=== PATIENT | female | born 1990 | race Caucasian/White ===

== ENCOUNTER 2017-11-18 17:56 | Emergency (ER) | payer MEDICAID, OTHER ==
[~2017-11-18] VITALS: Ht 167.6 cm; Wt 109.0 kg
[2017-11-18] MEDS ORDERED: IRON1CAP21 PO (18:20)
[2017-11-18] MEDS ORDERED: BACITRACIN ZINC OINT UDPKT TOP ONE (18:30)
[2017-11-18] MEDS ORDERED: LIDOCAINE HCL 1% 20ML VIAL (Pyxis) INJ MC ONE (18:30)
[2017-11-18 21:54] VITALS: BP 110/75
[2017-11-18] MEDS ORDERED: LIDOCAINE HCL/PF 1% 10 MG/ML 5ML VIAL IJ SCH (22:41)
[2017-11-18] MEDS ORDERED: TETANUS, DIPHTHERIA, PERTUSSIS VAC/PF 0.5ML (>7YR OLD) IM ONE (23:45)
== END 2017-11-19 00:28 | disposition home or self-care (01) ==
LOC: ER 17:56
DX: S61.512A Laceration without foreign body of left wrist, initial encounter (principal); W45.8XXA Other foreign body or object entering through skin, initial encounter; Y93.G1 Activity, food preparation and clean up; Y92.89 Other specified places as the place of occurrence of the external cause; Y99.8 Other external cause status
CPT/HCPCS: 12002; 73110; 81025; 90471; 90715; 99284; J3490

== ENCOUNTER 2020-06-14 02:45 | Inpatient (IN) | payer MEDICAID ==
[~2020-06-14] VITALS: Ht 165.1 cm; Wt 109.0 kg
[~2020-06-14 02:45] MED LIST: IRON1CAP21 PO
[2020-06-14] MEDS ORDERED: ACETAMINOPHEN 325MG TABLET PO STA (03:40)
[2020-06-14] MEDS ORDERED: SODIUM CHLORIDE 0.9% 1,000 ML IV ONE (03:45)
[2020-06-14] MEDS ORDERED: CEFTRIAXONE 1 G PREMIX 50 ML IV ONE (03:45)
[2020-06-14] MEDS ORDERED: AZITHROMYCIN 500 MG in DEXT 5% WATER 250 ML IV ONE (03:45)
[2020-06-14 04:32] LABS: BASOPHILS % 0.3 % (0.0-2.0); HEMATOCRIT. 38.1 % (36.0-48.0); HEMOGLOBIN. 11.9 g/dL (12.0-16.0); MEAN CORPUSCULAR HEMOGLOBIN 20.2 pg (28.0-32.0); MEAN CORPUSCULAR VOLUME 64.7 fL (81.0-99.0); MEAN PLATELET VOLUME 9.1 fl (7.4-10.4); MONOCYTES % 2.3 % (2.0-8.0); NEUTROPHILS % 85.4 % (40.0-76.0); PLATELET 262 x1000/uL (130-400); RED BLOOD CELL COUNT 5.88 mill/uL (4.2-5.4); RED CELL DISTRIBUTION WIDTH 21.2 % (11.6-14.6)
[2020-06-14 04:35] LABS: CHLORIDE 107 mEq/L (98-107)
[2020-06-14 04:51] LABS: HCG SCREEN NEGATIVE
[2020-06-14 05:40] LABS: PLATELET ESTIMATE NORMAL
[2020-06-14 08:57] LABS: CLARITY URINE TURBID (CLEAR); COLOR URINE DARK YELLOW (YELLOW); KETONES URINE TRACE (NEGATIVE); LEUKOCYTE ESTERASE URINE 1+ (NEGATIVE); NITRITE URINE NEGATIVE (NEGATIVE); OCCULT BLOOD URINE NEGATIVE (NEGATIVE); PROTEIN URINE 3+ (NEGATIVE); SPECIFIC GRAVITY URINE 1.033 (1.005-1.030)
[2020-06-14] MEDS ORDERED: ALBUTEROL 6.7GM HFA INHALER ORI PRN (09:15)
[2020-06-14] MEDS ORDERED: ONDANSETRON HCL 4MG/2ML INJ IV PRN (09:15)
[2020-06-14] MEDS ORDERED: CLONIDINE 0.1MG TABLET PO PRN (09:15)
[2020-06-14] MEDS ORDERED: GUAIFENESIN 200MG/10ML SUGAR FREE UDC PO PRN (09:15)
[2020-06-14] MEDS ORDERED: ACETAMINOPHEN 325MG TABLET PO PRN ×2 (09:15)
[2020-06-14] MEDS ORDERED: MAGNESIUM/ALUMINUM HYDROXIDE/SIMETHICONE 30ML UDC PO PRN (09:15)
[2020-06-14] MEDS ORDERED: NITROGLYCERIN 0.4MG TABLET SL SL PRN (09:15)
[2020-06-14] MEDS ORDERED: KETOROLAC 15MG/ML VIAL IV PRN (09:15)
[2020-06-14] MEDS: ASCORBIC ACID 500 MG TABLET PO SCH ×2 (10:00→22:16)
[2020-06-14] MEDS: GUAIFENESIN/DM 600MG/30MG ER TAB 12HR PO SCH ×2 (10:00→22:16)
[2020-06-14] MEDS: DEXAMETHASONE 10 MG/ML VIAL IV SCH (10:00)
[2020-06-14] MEDS: ENOXAPARIN 40MG/0.4ML SYR SUBCUT SCH (10:00)
[2020-06-14] MEDS: ZINC SULFATE 220 MG ( 50 ) CAPSULE PO SCH (10:00)
[2020-06-14] MEDS ORDERED: ZOLPIDEM TARTRATE 5MG TABLET PO PRN (18:00)
[2020-06-14 21:30] VITALS: BP_SYST 165
[2020-06-14 21:35] VITALS: BP_SYST 165
[2020-06-14 21:40] VITALS: BP 101/60
[2020-06-15] VITALS: BP 111/60
[2020-06-15 04:00] VITALS: BP 101/66
[2020-06-15 08:57] LABS: BASOPHILS % 0.1 % (0.0-2.0); HEMATOCRIT. 36.8 % (36.0-48.0); HEMOGLOBIN. 11.3 g/dL (12.0-16.0); LYMPHOCYTES % 19.5 % (20.0-50.0); MEAN CORPUSCULAR HEMOGLOBIN 20.1 pg (28.0-32.0); MEAN CORPUSCULAR VOLUME 65.3 fL (81.0-99.0); MEAN PLATELET VOLUME 9.3 fl (7.4-10.4); MONOCYTES % 4.5 % (2.0-8.0); NEUTROPHILS % 75.9 % (40.0-76.0); PLATELET 276 x1000/uL (130-400); RED BLOOD CELL COUNT 5.63 mill/uL (4.2-5.4); RED CELL DISTRIBUTION WIDTH 21.3 % (11.6-14.6)
[2020-06-15] MEDS ORDERED: AZITHROMYCIN 500 MG in DEXT 5% WATER 250 ML IV SCH (09:00)
[2020-06-15] MEDS ORDERED: CEFTRIAXONE 1 G PREMIX 50 ML IV SCH (09:00)
[2020-06-15 09:07] LABS: CHLORIDE 110 mEq/L (98-107)
[2020-06-15 09:16] LABS: PHOSPHORUS 2.9 mg/dL (2.5-4.9)
[2020-06-15] MEDS: ENOXAPARIN 40MG/0.4ML SYR SUBCUT SCH (09:26)
[2020-06-15] MEDS: ASCORBIC ACID 500 MG TABLET PO SCH ×2 (09:26→21:55)
[2020-06-15] MEDS: GUAIFENESIN/DM 600MG/30MG ER TAB 12HR PO SCH ×2 (09:26→21:55)
[2020-06-15] MEDS: ZINC SULFATE 220 MG ( 50 ) CAPSULE PO SCH (09:26)
[2020-06-15] MEDS: DEXAMETHASONE 10 MG/ML VIAL IV SCH (09:27)
[2020-06-15 09:53] VITALS: BP 98/52
[2020-06-15] MEDS: ALBUTEROL 6.7GM HFA INHALER ORI SCH ×3 (10:00→22:14)
[2020-06-15] MEDS: CEFTRIAXONE 1,000 MG in DEXTROSE 5% WATER 50 ML IV SCH (12:49)
[2020-06-15 13:23] VITALS: BP 104/55
[2020-06-15 16:50] VITALS: BP 100/49
[2020-06-15 20:00] VITALS: BP 105/77
[2020-06-15 20:39] LABS: *BARBITURATES SCREEN URINE NEGATIVE (NEGATIVE); *COCAINE SCREEN URINE NEGATIVE (NEGATIVE); METHADONE URINE SCREEN NEGATIVE (NEGATIVE)
[2020-06-15 20:40] LABS: *AMPHETAMINES SCREEN URINE NEGATIVE (NEGATIVE); *BENZODIAZEPINES SCREEN URINE NEGATIVE (NEGATIVE); CANNABINOID URINE SCREEN NEGATIVE (NEGATIVE); OPIATES URINE SCREEN NEGATIVE (NEGATIVE); PHENCYCLIDINE URINE SCREEN NEGATIVE (NEGATIVE)
[2020-06-16] VITALS: BP 125/59
[2020-06-16] MEDS: ALBUTEROL 6.7GM HFA INHALER ORI SCH ×4 (03:49→22:56)
[2020-06-16 04:11] VITALS: BP 95/38
[2020-06-16] MEDS: DEXAMETHASONE 10 MG/ML VIAL IV SCH (08:32)
[2020-06-16] MEDS: ASCORBIC ACID 500 MG TABLET PO SCH ×2 (08:32→22:55)
[2020-06-16] MEDS: CEFTRIAXONE 1,000 MG in DEXTROSE 5% WATER 50 ML IV SCH (08:32)
[2020-06-16] MEDS: ZINC SULFATE 220 MG ( 50 ) CAPSULE PO SCH (08:32)
[2020-06-16] MEDS: GUAIFENESIN/DM 600MG/30MG ER TAB 12HR PO SCH ×2 (08:32→22:55)
[2020-06-16] MEDS: ENOXAPARIN 30MG/0.3ML SYR SUBCUT SCH ×2 (08:32→22:56)
[2020-06-16 11:57] VITALS: BP 112/56
[2020-06-16] MEDS: AZITHROMYCIN 500 MG in DEXT 5% WATER 250 ML IV SCH (13:49)
[2020-06-16 16:00] VITALS: BP 102/64
[2020-06-16 20:00] VITALS: BP 129/56
[2020-06-17] VITALS: BP 103/51
[2020-06-17 04:00] VITALS: BP 122/83
[2020-06-17] MEDS: ALBUTEROL 6.7GM HFA INHALER ORI SCH ×4 (06:50→22:03)
[2020-06-17 08:00] VITALS: BP 90/48
[2020-06-17] MEDS: ZINC SULFATE 220 MG ( 50 ) CAPSULE PO SCH (09:08)
[2020-06-17] MEDS: ASCORBIC ACID 500 MG TABLET PO SCH ×2 (09:08→22:03)
[2020-06-17] MEDS: DEXAMETHASONE 10 MG/ML VIAL IV SCH (09:08)
[2020-06-17] MEDS: CEFTRIAXONE 1,000 MG in DEXTROSE 5% WATER 50 ML IV SCH (09:08)
[2020-06-17] MEDS: GUAIFENESIN/DM 600MG/30MG ER TAB 12HR PO SCH ×2 (09:08→22:03)
[2020-06-17] MEDS: ENOXAPARIN 30MG/0.3ML SYR SUBCUT SCH ×2 (09:09→22:04)
[2020-06-17 12:00] VITALS: BP 97/64
[2020-06-17] MEDS: AZITHROMYCIN 500 MG in DEXT 5% WATER 250 ML IV SCH (14:18)
[2020-06-17 16:00] VITALS: BP 94/68
[2020-06-17 20:00] VITALS: BP 123/88
[2020-06-18] VITALS: BP 93/62
[2020-06-18] MEDS: ALBUTEROL 6.7GM HFA INHALER ORI SCH ×4 (03:10→21:41)
[2020-06-18 04:00] VITALS: BP 116/60
[2020-06-18 08:00] VITALS: BP 97/60
[2020-06-18] MEDS: ASCORBIC ACID 500 MG TABLET PO SCH ×2 (09:00→21:41)
[2020-06-18] MEDS: ENOXAPARIN 30MG/0.3ML SYR SUBCUT SCH ×2 (10:04→21:41)
[2020-06-18] MEDS: CEFTRIAXONE 1,000 MG in DEXTROSE 5% WATER 50 ML IV SCH (10:04)
[2020-06-18] MEDS: GUAIFENESIN/DM 600MG/30MG ER TAB 12HR PO SCH ×2 (10:04→21:00)
[2020-06-18] MEDS: ZINC SULFATE 220 MG ( 50 ) CAPSULE PO SCH (10:05)
[2020-06-18] MEDS: DEXAMETHASONE 10 MG/ML VIAL IV SCH (10:05)
[2020-06-18 12:00] VITALS: BP 102/65
[2020-06-18 16:00] VITALS: BP 98/62
[2020-06-18 20:00] VITALS: BP 124/74
[2020-06-19] VITALS: BP 108/72
[2020-06-19] MEDS: ALBUTEROL 6.7GM HFA INHALER ORI SCH ×4 (04:00→22:21)
[2020-06-19 06:00] VITALS: BP 99/53
[2020-06-19 08:00] VITALS: BP 107/57
[2020-06-19] MEDS: ZINC SULFATE 220 MG ( 50 ) CAPSULE PO SCH (09:00)
[2020-06-19] MEDS: ASCORBIC ACID 500 MG TABLET PO SCH ×2 (09:36→22:19)
[2020-06-19] MEDS: DEXAMETHASONE 10 MG/ML VIAL IV SCH (09:37)
[2020-06-19] MEDS: GUAIFENESIN/DM 600MG/30MG ER TAB 12HR PO SCH ×2 (09:37→22:19)
[2020-06-19] MEDS: ENOXAPARIN 30MG/0.3ML SYR SUBCUT SCH ×2 (09:37→22:20)
[2020-06-19 16:10] LABS: BG BASE EXCESS -1.4 mmol/L (-2.0-2.0); BG CARBOXYHEMOGLOBIN 0.4 % (0.5-1.5); BG DEOXYHEMOGLOBIN 4.6 % (0.0-5.0); BG FRACTION INSPIRED OXYGEN 100; BG HCO3 ACT 21.4 mmol/L (22.0-26.0); BG METHEMOGLOBIN 0.4 % (0.0-1.5); BG OXYGEN SATURATION 95.4 % (92.0-98.5); BG OXYHEMOGLOBIN 94.6 % (94.0-97.0); BG PCO2 30.5 mmHg (35.0-45.0); BG PH 7.463 (7.350-7.450); BG PO2 80.1 mmHg (75.0-100.0); BG SAMPLE SITE RIGHT RADIAL; BG TOTAL HEMOGLOBIN 13.7 g/dL (12.0-18.0); BG VENT MODE MASK - NRB
[2020-06-19] MEDS: ERGOCALCIFEROL 50000UNITS CAPSULE PO SCH (18:39)
[2020-06-19] MEDS ORDERED: CEFTRIAXONE 1,000 MG in DEXTROSE 5% WATER 50 ML IV SCH (19:00)
[2020-06-19 20:00] VITALS: BP 126/82
[2020-06-19] MEDS: DOXYCYCLINE HYCLATE 100MG CAPSULE PO SCH (22:19)
[2020-06-20] VITALS: BP 128/78
[2020-06-20] MEDS: ALBUTEROL 6.7GM HFA INHALER ORI SCH ×4 (06:07→22:41)
[2020-06-20 07:33] LABS: BASOPHILS % 0.5 % (0.0-2.0); EOSINOPHILS % 3.1 % (0.0-5.0); HEMATOCRIT. 38.9 % (36.0-48.0); HEMOGLOBIN. 12.2 g/dL (12.0-16.0); LYMPHOCYTES % 21.9 % (20.0-50.0); MEAN CORPUSCULAR HEMOGLOBIN 20.5 pg (28.0-32.0); MEAN CORPUSCULAR VOLUME 65.1 fL (81.0-99.0); MEAN PLATELET VOLUME 8.6 fl (7.4-10.4); MONOCYTES % 5.3 % (2.0-8.0); NEUTROPHILS % 69.2 % (40.0-76.0); PLATELET 421 x1000/uL (130-400); RED BLOOD CELL COUNT 5.98 mill/uL (4.2-5.4)
[2020-06-20 07:45] LABS: CHLORIDE 107 mEq/L (98-107)
[2020-06-20 08:00] VITALS: BP 111/62
[2020-06-20] MEDS: ENOXAPARIN 30MG/0.3ML SYR SUBCUT SCH ×2 (09:11→20:28)
[2020-06-20] MEDS: ASCORBIC ACID 500 MG TABLET PO SCH ×2 (09:11→20:28)
[2020-06-20] MEDS: DOXYCYCLINE HYCLATE 100MG CAPSULE PO SCH ×2 (09:11→20:28)
[2020-06-20] MEDS: ZINC SULFATE 220 MG ( 50 ) CAPSULE PO SCH (09:11)
[2020-06-20] MEDS: DEXAMETHASONE 10 MG/ML VIAL IV SCH (09:12)
[2020-06-20] MEDS: GUAIFENESIN/DM 600MG/30MG ER TAB 12HR PO SCH ×2 (10:05→20:28)
[2020-06-20 12:00] VITALS: BP 113/56
[2020-06-20 16:00] VITALS: BP 95/50
[2020-06-20] MEDS: GUAIFENESIN-DM 200MG-20MG/10ML UDC PO PRN (16:25)
[2020-06-20 20:00] VITALS: BP 108/62
[2020-06-21] VITALS: BP 114/63
[2020-06-21] MEDS: ALBUTEROL 6.7GM HFA INHALER ORI SCH ×4 (03:14→20:21)
[2020-06-21] MEDS: GUAIFENESIN-DM 200MG-20MG/10ML UDC PO PRN ×3 (03:17→23:46)
[2020-06-21 04:00] VITALS: BP 103/56
[2020-06-21 08:00] VITALS: BP 110/65
[2020-06-21] MEDS: DOXYCYCLINE HYCLATE 100MG CAPSULE PO SCH ×2 (09:08→20:18)
[2020-06-21] MEDS: GUAIFENESIN/DM 600MG/30MG ER TAB 12HR PO SCH ×2 (09:08→20:18)
[2020-06-21] MEDS: ZINC SULFATE 220 MG ( 50 ) CAPSULE PO SCH (09:08)
[2020-06-21] MEDS: DEXAMETHASONE 10 MG/ML VIAL IV SCH (09:08)
[2020-06-21] MEDS: ASCORBIC ACID 500 MG TABLET PO SCH ×2 (09:08→20:18)
[2020-06-21] MEDS: ENOXAPARIN 30MG/0.3ML SYR SUBCUT SCH ×2 (09:09→20:18)
[2020-06-21 12:58] VITALS: BP 97/45
[2020-06-21 17:04] VITALS: BP 106/52
[2020-06-22] VITALS: BP 109/71
[2020-06-22 04:00] VITALS: BP 106/59
[2020-06-22] MEDS: ALBUTEROL 6.7GM HFA INHALER ORI SCH ×4 (04:00→22:14)
[2020-06-22] MEDS: DOXYCYCLINE HYCLATE 100MG CAPSULE PO SCH ×2 (10:39→22:13)
[2020-06-22] MEDS: ASCORBIC ACID 500 MG TABLET PO SCH ×2 (10:39→22:13)
[2020-06-22] MEDS: DEXAMETHASONE 10 MG/ML VIAL IV SCH (10:39)
[2020-06-22] MEDS: ENOXAPARIN 30MG/0.3ML SYR SUBCUT SCH ×2 (10:39→22:13)
[2020-06-22] MEDS: ZINC SULFATE 220 MG ( 50 ) CAPSULE PO SCH (10:39)
[2020-06-22] MEDS: GUAIFENESIN/DM 600MG/30MG ER TAB 12HR PO SCH ×2 (10:39→22:13)
[2020-06-22 16:00] VITALS: BP 107/62
[2020-06-22 20:00] VITALS: BP 101/52
[2020-06-23] VITALS: BP 99/58
[2020-06-23] MEDS: GUAIFENESIN-DM 200MG-20MG/10ML UDC PO PRN ×3 (02:11→20:28)
[2020-06-23 04:00] VITALS: BP 108/54
[2020-06-23] MEDS: ALBUTEROL 6.7GM HFA INHALER ORI SCH ×4 (04:00→20:26)
[2020-06-23 08:00] VITALS: BP 89/42
[2020-06-23] MEDS: GUAIFENESIN/DM 600MG/30MG ER TAB 12HR PO SCH ×2 (09:00→20:28)
[2020-06-23] MEDS: ENOXAPARIN 30MG/0.3ML SYR SUBCUT SCH ×2 (09:00→20:29)
[2020-06-23] MEDS: DEXAMETHASONE 10 MG/ML VIAL IV SCH (09:00)
[2020-06-23 12:00] VITALS: BP 90/48
[2020-06-23 16:00] VITALS: BP 102/58
[2020-06-23] MEDS: ASCORBIC ACID 500 MG TABLET PO SCH ×2 (16:33→20:28)
[2020-06-23] MEDS: ZINC SULFATE 220 MG ( 50 ) CAPSULE PO SCH (16:34)
[2020-06-23] MEDS: DOXYCYCLINE HYCLATE 100MG CAPSULE PO SCH ×2 (16:34→20:31)
[2020-06-23 20:00] VITALS: BP 108/63
[2020-06-24] VITALS: BP 112/53
[2020-06-24] MEDS: GUAIFENESIN-DM 200MG-20MG/10ML UDC PO PRN ×4 (00:39→21:35)
[2020-06-24 04:00] VITALS: BP 99/54
[2020-06-24] MEDS: ALBUTEROL 6.7GM HFA INHALER ORI SCH ×4 (04:31→21:37)
[2020-06-24 08:00] VITALS: BP 92/43
[2020-06-24] MEDS: GUAIFENESIN/DM 600MG/30MG ER TAB 12HR PO SCH ×2 (08:56→21:35)
[2020-06-24] MEDS: ZINC SULFATE 220 MG ( 50 ) CAPSULE PO SCH (08:56)
[2020-06-24] MEDS: DOXYCYCLINE HYCLATE 100MG CAPSULE PO SCH ×2 (08:56→21:35)
[2020-06-24] MEDS: ENOXAPARIN 30MG/0.3ML SYR SUBCUT SCH ×2 (08:57→21:00)
[2020-06-24] MEDS: ASCORBIC ACID 500 MG TABLET PO SCH ×2 (08:57→21:35)
[2020-06-24 12:00] VITALS: BP 104/58
[2020-06-24 16:00] VITALS: BP 98/45
[2020-06-24] MEDS: METHYLPREDNISOLONE SOD SUCC 40 MG/ML VIAL IV SCH (16:44)
[2020-06-24 20:00] VITALS: BP 102/58
[2020-06-25] VITALS: BP 102/50
[2020-06-25] MEDS: METHYLPREDNISOLONE SOD SUCC 40 MG/ML VIAL IV SCH ×3 (01:24→18:02)
[2020-06-25] MEDS: GUAIFENESIN-DM 200MG-20MG/10ML UDC PO PRN ×2 (01:27→22:40)
[2020-06-25] MEDS: ALBUTEROL 6.7GM HFA INHALER ORI SCH ×4 (03:42→22:00)
[2020-06-25 04:00] VITALS: BP 106/58
[2020-06-25 07:08] LABS: BASOPHILS % 0.8 % (0.0-2.0); EOSINOPHILS % 0.2 % (0.0-5.0); HEMATOCRIT. 37.5 % (36.0-48.0); HEMOGLOBIN. 11.6 g/dL (12.0-16.0); LYMPHOCYTES % 10.3 % (20.0-50.0); MEAN CORPUSCULAR HEMOGLOBIN 20.6 pg (28.0-32.0); MEAN CORPUSCULAR VOLUME 66.5 fL (81.0-99.0); MEAN PLATELET VOLUME 8.7 fl (7.4-10.4); MONOCYTES % 2.6 % (2.0-8.0); NEUTROPHILS % 86.1 % (40.0-76.0); PLATELET 345 x1000/uL (130-400); RED BLOOD CELL COUNT 5.63 mill/uL (4.2-5.4); RED CELL DISTRIBUTION WIDTH 21.1 % (11.6-14.6)
[2020-06-25 07:45] LABS: CHLORIDE 106 mEq/L (98-107)
[2020-06-25 08:00] VITALS: BP 116/53
[2020-06-25] MEDS: ASCORBIC ACID 500 MG TABLET PO SCH ×2 (09:00→22:40)
[2020-06-25] MEDS: ENOXAPARIN 30MG/0.3ML SYR SUBCUT SCH ×2 (09:00→21:00)
[2020-06-25] MEDS: DOXYCYCLINE HYCLATE 100MG CAPSULE PO SCH ×2 (09:26→22:40)
[2020-06-25] MEDS: GUAIFENESIN/DM 600MG/30MG ER TAB 12HR PO SCH ×2 (09:26→22:50)
[2020-06-25] MEDS: ZINC SULFATE 220 MG ( 50 ) CAPSULE PO SCH (09:27)
[2020-06-25 12:00] VITALS: BP 112/50
[2020-06-25 16:00] VITALS: BP 126/69
[2020-06-25 20:00] VITALS: BP 105/58
[2020-06-26 04:00] VITALS: BP 120/54
[2020-06-26] MEDS: ALBUTEROL 6.7GM HFA INHALER ORI SCH ×5 (04:00→22:00)
[2020-06-26] MEDS: GUAIFENESIN-DM 200MG-20MG/10ML UDC PO PRN ×4 (05:04→22:04)
[2020-06-26] MEDS: DOCUSATE SODIUM 100MG CAPSULE PO PRN (05:06)
[2020-06-26 08:00] VITALS: BP 113/74
[2020-06-26] MEDS: ENOXAPARIN 30MG/0.3ML SYR SUBCUT SCH ×2 (09:00→21:00)
[2020-06-26] MEDS ORDERED: METHYLPREDNISOLONE SOD SUCC 40 MG/ML VIAL IV SCH (09:00)
[2020-06-26] MEDS: DOXYCYCLINE HYCLATE 100MG CAPSULE PO SCH (11:19)
[2020-06-26] MEDS: ZINC SULFATE 220 MG ( 50 ) CAPSULE PO SCH (11:19)
[2020-06-26] MEDS: ERGOCALCIFEROL 50000UNITS CAPSULE PO SCH (11:20)
[2020-06-26] MEDS: GUAIFENESIN/DM 600MG/30MG ER TAB 12HR PO SCH ×2 (11:20→21:34)
[2020-06-26] MEDS: ASCORBIC ACID 500 MG TABLET PO SCH ×2 (11:20→21:33)
[2020-06-26 12:00] VITALS: BP 98/50
[2020-06-26 15:10] VITALS: BP 105/50
[2020-06-26] MEDS: METHYLPREDNISOLONE SOD SUCC 40 MG/ML VIAL IV SCH (21:33)
[2020-06-27] VITALS: BP 111/66
[2020-06-27] MEDS: ALBUTEROL 6.7GM HFA INHALER ORI SCH ×4 (04:00→22:00)
[2020-06-27] MEDS: GUAIFENESIN-DM 200MG-20MG/10ML UDC PO PRN ×3 (06:12→17:07)
[2020-06-27 08:00] VITALS: BP 87/39
[2020-06-27] MEDS: ENOXAPARIN 30MG/0.3ML SYR SUBCUT SCH ×2 (09:00→21:00)
[2020-06-27] MEDS: ASCORBIC ACID 500 MG TABLET PO SCH ×2 (09:15→23:00)
[2020-06-27] MEDS: GUAIFENESIN/DM 600MG/30MG ER TAB 12HR PO SCH ×2 (09:15→23:00)
[2020-06-27] MEDS: ZINC SULFATE 220 MG ( 50 ) CAPSULE PO SCH (09:15)
[2020-06-27] MEDS: METHYLPREDNISOLONE SOD SUCC 40 MG/ML VIAL IV SCH (09:15)
[2020-06-27 16:00] VITALS: BP 102/50
[2020-06-27 20:00] VITALS: BP 98/63
[2020-06-28] VITALS: BP 109/56
[2020-06-28] MEDS: ENOXAPARIN 30MG/0.3ML SYR SUBCUT SCH ×3 (00:05→21:00)
[2020-06-28] MEDS: DOCUSATE SODIUM 100MG CAPSULE PO PRN (03:08)
[2020-06-28] MEDS: GUAIFENESIN-DM 200MG-20MG/10ML UDC PO PRN ×3 (03:08→22:45)
[2020-06-28 04:00] VITALS: BP 108/60
[2020-06-28] MEDS: ALBUTEROL 6.7GM HFA INHALER ORI SCH ×3 (04:00→16:25)
[2020-06-28 08:00] VITALS: BP 90/49
[2020-06-28] MEDS: GUAIFENESIN/DM 600MG/30MG ER TAB 12HR PO SCH ×2 (08:52→21:13)
[2020-06-28] MEDS: PREDNISONE 10MG TABLET PO SCH (08:52)
[2020-06-28] MEDS: ASCORBIC ACID 500 MG TABLET PO SCH ×2 (08:52→21:13)
[2020-06-28] MEDS: ZINC SULFATE 220 MG ( 50 ) CAPSULE PO SCH (08:52)
[2020-06-28 12:00] VITALS: BP 106/59
[2020-06-28] MEDS: BENZONATATE 100MG CAPSULE PO SCH (13:10)
[2020-06-28 16:00] VITALS: BP 107/34
[2020-06-28 20:00] VITALS: BP 104/52
[2020-06-29] MEDS: ALBUTEROL 6.7GM HFA INHALER ORI SCH ×2 (00:42→10:33)
[2020-06-29] MEDS: BENZONATATE 100MG CAPSULE PO SCH ×3 (00:42→14:59)
[2020-06-29 00:50] VITALS: BP 104/43
[2020-06-29] MEDS: PREDNISONE 10MG TABLET PO SCH (08:35)
[2020-06-29] MEDS: GUAIFENESIN/DM 600MG/30MG ER TAB 12HR PO SCH (08:35)
[2020-06-29] MEDS: ASCORBIC ACID 500 MG TABLET PO SCH (08:35)
[2020-06-29] MEDS: ENOXAPARIN 30MG/0.3ML SYR SUBCUT SCH (08:35)
[2020-06-29] MEDS: ZINC SULFATE 220 MG ( 50 ) CAPSULE PO SCH (08:35)
[2020-06-29 15:10] VITALS: BP 111/57
== END 2020-06-29 16:02 | disposition home or self-care (01) | DRG 720 ==
LOC: ER 02:45 → 8WST 05:49 → ENRESERV 20:13 → 6WST 06-28 23:28
PROVIDERS: ADMIT Internal Medicine; ATTEND Internal Medicine
DX: A41.89 Other specified sepsis (principal); U07.1 COVID-19; J96.01 Acute respiratory failure with hypoxia; N39.0 Urinary tract infection, site not specified; E83.51 Hypocalcemia; D64.9 Anemia, unspecified; E43 Unspecified severe protein-calorie malnutrition; J12.82 Pneumonia due to coronavirus disease 2019; E66.9 Obesity, unspecified; Z68.41 Body mass index [BMI] 40.0-44.9, adult
CPT/HCPCS: 36415; 36600; 71045; 80048; 80053; 80305; 81003; 82375; 82728; 82805; 83036; 83605; 83615; 83735; 83880; 84100; 84145; 84703; 85025; 85379; 86140; 87635; 93005; 93970; 99291; J0456; J0696; J1100; J1650; J2920; J7030; J7060; J7512

== ENCOUNTER 2021-11-11 21:36 | Emergency (ER) | payer MEDICAID ==
[~2021-11-11] VITALS: Ht 165.1 cm; Wt 133.7 kg
[2021-11-12 01:33] LABS: BASOPHILS % 0.8 % (0.0-2.0); EOSINOPHILS % 1.5 % (0.0-5.0); HEMOGLOBIN. 14.7 g/dL (12.0-16.0); LYMPHOCYTES % 26.7 % (20.0-50.0); MEAN CORPUSCULAR HEMOGLOBIN 24.9 pg (28.0-32.0); MEAN CORPUSCULAR VOLUME 77.8 fL (81.0-99.0); MEAN PLATELET VOLUME 8.9 fl (7.4-10.4); MONOCYTES % 6.6 % (2.0-8.0); NEUTROPHILS % 64.4 % (40.0-76.0); PLATELET 340 x1000/uL (130-400); RED BLOOD CELL COUNT 5.91 mill/uL (4.2-5.4); RED CELL DISTRIBUTION WIDTH 15.9 % (11.6-14.6)
[2021-11-12 01:39] LABS: CHLORIDE 109 mEq/L (98-107)
[2021-11-12] MEDS ORDERED: ENOXAPARIN 150MG/ML SYR SUBCUT NR (03:00)
[2021-11-12 04:25] VITALS: BP 129/71
== END 2021-11-12 10:01 | disposition home or self-care (01) ==
LOC: ER 21:36
DX: R06.00 Dyspnea, unspecified (principal); R07.89 Other chest pain; Z20.822 Contact with and (suspected) exposure to COVID-19; R05.8 Other specified cough; R00.0 Tachycardia, unspecified; E66.9 Obesity, unspecified; Z68.42 Body mass index [BMI] 45.0-49.9, adult; Z86.16 Personal history of COVID-19
CPT/HCPCS: 36415; 71045; 78582; 80053; 83880; 85025; 85379; 87426; 87804; 93005; 96372; 99285; A9540; A9558; C9803; J1650

== ENCOUNTER 2023-09-26 22:23 | Inpatient (IN) | payer MEDICAID ==
[~2023-09-26] VITALS: Ht 162.6 cm; Wt 98.9 kg
[2023-09-26 22:57] LABS: BASOPHILS % 0.8 % (0.0-2.0); EOSINOPHILS % 2.4 % (0.0-5.0); LYMPHOCYTES % 45.6 % (20.0-50.0); MEAN CORPUSCULAR HGB CONC 28.9 g/dL (31.0-37.0); MEAN CORPUSCULAR VOLUME 55.4 fL (81.0-99.0); MEAN PLATELET VOLUME 8.6 fl (7.4-10.4); MONOCYTES % 7.3 % (2.0-8.0); NEUTROPHILS % 43.9 % (40.0-76.0); PLATELET 424 x1000/uL (130-400); RED BLOOD CELL COUNT 4.27 mill/uL (4.2-5.4); WHITE BLOOD COUNT 6.9 x1000/uL (4.5-11.0)
[2023-09-26 22:58] LABS: DIFFERENTIAL COMMENT 1
[2023-09-26 23:00] LABS: ADD RBC MORPHOLOGY YES; HEMATOCRIT. 23.7 % (36.0-48.0); HEMOGLOBIN. 6.8 g/dL (12.0-16.0)
[2023-09-26 23:21] LABS: PLATELET ESTIMATE INCREASED
[2023-09-26 23:22] LABS: ANISOCYTOSIS 2+; HYPOCHROMASIA 3+; MICROCYTOSIS 3+; OVALOCYTES 1+
[2023-09-26 23:26] LABS: CLARITY URINE CLEAR (CLEAR); COLOR URINE YELLOW (YELLOW); GLUCOSE URINE NEGATIVE (NEGATIVE); KETONES URINE NEGATIVE (NEGATIVE); LEUKOCYTE ESTERASE URINE 1+ (NEGATIVE); NITRITE URINE NEGATIVE (NEGATIVE); OCCULT BLOOD URINE NEGATIVE (NEGATIVE); PROTEIN URINE NEGATIVE (NEGATIVE); SPECIFIC GRAVITY URINE 1.026 (1.005-1.030)
[2023-09-26 23:27] LABS: ALANINE AMINOTRANSFERASE 7 IU/L (10-49); ALBUMIN 3.8 g/dL (3.2-4.8); ASPARTATE AMINOTRANSFERASE 15 IU/L (<34); BILIRUBIN TOTAL 0.5 mg/dL (0.1-1.0); CARBON DIOXIDE 22 mEq/L (21-32); CHLORIDE 108 mEq/L (98-107); CREATININE 0.6 mg/dL (0.6-1.0); GLUCOSE 85 mg/dL (70-105); POTASSIUM 3.8 mEq/L (3.5-5.1); PROTEIN TOTAL 6.8 g/dL (6.0-8.3); SODIUM 137 mEq/L (136-145); UREA NITROGEN BLOOD 11 mg/dL (9-23)
[2023-09-26] MEDS: SODIUM CHLORIDE 0.9% 1,000 ML IV ONE (23:38)
[2023-09-26 23:53] LABS: IRON 13 ug/dL (50-170); TOTAL IRON BINDING CAPACITY 272 ug/dl (250-425)
[2023-09-27 02:26] LABS: SQUAMOUS EPITHELIAL CELL URINE 1+ /lpf (RARE/1+)
[2023-09-27 02:27] LABS: RBC URINE 0-2 /hpf (0-2)
[2023-09-27 02:28] LABS: BACTERIA URINE TRACE
[2023-09-27 15:29] VITALS: BP 103/57; PULSE 69; RESP 16; TEMP 97.3
[2023-09-27 16:07] LABS: HEMOGLOBIN 8.2 g/dL (12.0-16.0)
[2023-09-27] MEDS ORDERED: MULT-622 PO (16:14)
[2023-09-27 16:22] VITALS: BP 103/57; PULSE 69; RESP 16; TEMP 97.3
[2023-09-27 16:29] LABS: FOLIC ACID (FOLATE) SERUM 15.73 ng/mL (>5.38); VITAMIN B12 SERUM 395 pg/mL (211-911)
[2023-09-27 20:00] VITALS: BP 121/49; PULSE 55; RESP 19; TEMP 97.2
[2023-09-27] MEDS: ONDANSETRON HCL 4MG/2ML INJ IV PRN (22:07)
[2023-09-28] VITALS: BP 96/53; PULSE 59; RESP 19; TEMP 97.6
[2023-09-28] MEDS: ACETAMINOPHEN 325MG TABLET PO PRN (02:39)
[2023-09-28 04:00] VITALS: BP 93/48; PULSE 59; RESP 19; TEMP 97.3
[2023-09-28] MEDS: GUAIFENESIN-DM 200MG-20MG/10ML UDC PO PRN (05:33)
[2023-09-28 08:00] VITALS: BP 102/66; PULSE 62; RESP 16; TEMP 97.6
[2023-09-28 11:18] VITALS: BP 112/60; PULSE 78; TEMP 97.6; O2SAT 98
== END 2023-09-28 12:19 | disposition home or self-care (01) | DRG 663 ==
LOC: ER 22:23 → 5WST 09-27 01:29 → EDBEDREQTM 09-27 01:31 → EDBEDREQ 09-27 01:31 → EDBEDREQSVC 09-27 01:35 → 7EST 09-27 15:03
PROVIDERS: ADMIT Internal Medicine; ATTEND Internal Medicine
PROC: 30233N1 Transfusion of Nonautologous Red Blood Cells into Peripheral Vein, Percutaneous Approach (ICD-10-PCS; principal; 2023-09-27)
DX: D64.9 Anemia, unspecified (principal); E66.9 Obesity, unspecified; Z68.37 Body mass index [BMI] 37.0-37.9, adult; Z90.49 Acquired absence of other specified parts of digestive tract
CPT/HCPCS: 36415; 80053; 81003; 82607; 82746; 83540; 83550; 85014; 85018; 85025; 86850; 86880; 86900; 86920; 93005; 99291; C1893; J2405; J7030; P9016